=== PATIENT | male | born 1975 | race Caucasian/White ===

== ENCOUNTER 2017-01-13 08:45 | Emergency (ER) | payer OTHER ==
[2017-01-13] MEDS ORDERED: KETOROLAC TROMETHAMINE 60 MG/2 ML VIAL IM ONE (09:13)
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
[2017-01-13] MEDS ORDERED: KETOROLAC TROMETHAMINE 60 MG/2 ML VIAL ONE (09:17)
[2017-01-13 09:21] VITALS: TEMP 97.9; BMI 45.6
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
[2017-01-13] MEDS ORDERED: SODIUM CHLORIDE 0.9% 1000 ML INFUS.BAG IV ONE (09:28)
[2017-01-13 10:29] LABS: ALBUMIN 3.6 g/dl (3.4-5.0); ANION GAP 9 (8-16); CALCIUM 8.9 mg/dL (8.5-10.1); CO2 27 mmol/L (21-32); COCKROFT - GAULT 288.23; CREATININE 0.6 mg/dL (0.7-1.3); GLUCOSE,RANDOM 112 mg/dL (74-106); SGOT/AST 21 U/L (15-37); SGPT/ALT 45 U/L (12-78)
[2017-01-13 10:31] LABS: ALK PHOS 94 U/L (45-117); BILIRUBIN,TOTAL 0.4 mg/dL (0.2-1.0); TOT PROT 7.5 g/dl (6.4-8.2)
[2017-01-13] MEDS ORDERED: OXYCODONE/APAP 5/325MG COMBO TABLET PO ONE (11:05)
[2017-01-13] MEDS ORDERED: OXYCODONE/APAP 5/325MG COMBO TABLET ONE (11:12)
[2017-01-13 12:18] VITALS: BP 118/60; PULSE 89
== END 2017-01-13 12:18 | disposition home or self-care (01) ==
LOC: JER 08:45
PROC: 3E0233Z Introduction of Anti-inflammatory into Muscle, Percutaneous Approach (ICD-10-PCS; principal; 2017-01-13)
DX: S13.4XXA Sprain of ligaments of cervical spine, initial encounter (principal); M62.838 Other muscle spasm; V43.52XA Car driver injured in collision with other type car in traffic accident, initial encounter; Y92.488 Other paved roadways as the place of occurrence of the external cause; Y99.8 Other external cause status; Q05.9 Spina bifida, unspecified; G82.20 Paraplegia, unspecified
CPT/HCPCS: 36415; 72125-TC; 80053; 99283-25